=== PATIENT | female | born 1990 | race Caucasian/White ===

== ENCOUNTER 2018-06-29 18:23 | Emergency (ER) | payer OTHER ==
[2018-06-29 18:38] VITALS: BP 116/78; PULSE 60; RESP 16; TEMP 98.1; O2SAT 98
[2018-06-29] MEDS ORDERED: Amoxicillin-Clav 500-125 mg Tab PO STA (19:10)
[2018-06-29] MEDS ORDERED: Amoxicillin-Clav 500-125 mg Tab PO ONE (19:19)
--- NOTE | 2018-06-29 19:41 | C.PDOC ---
History Of Present Illness 27 year old female presents to the ED for evaluation of left ear pain that started today. Patient reports fevers (subjective) and pain to the back of the left ear. She notes prior visit to PMD who prescribed a 5day course of azithromycin but only completed 2 days of the antibiotics. Denies ear discharge, allergies to medications nausea, vomiting, loss of hearing, and any other associated symptoms. <Rika Piña - Last Filed: 06/29/18 19:48> History Per: Patient History/Exam Limitations: None Onset/Duration Of Symptoms: Hrs Current Symptoms Are (Timing): Still Present <Rika Piña - Last Filed: 06/29/18 19:48> <João Morrison - Last Filed: 07/02/18 19:52> Time Seen by Provider: 06/29/18 18:48 Chief Complaint (Nursing): ENT Problem Past Medical History Reviewed: Historical Data, Nursing Documentation, Vital Signs Vital Signs: Last Vital Signs Temp 98.1 F 06/29/18 18:36 Pulse 60 06/29/18 18:36 Resp 16 06/29/18 18:36 BP 116/78 06/29/18 18:36 Pulse Ox 98 06/29/18 18:36 Family History: States: Unknown Family Hx - Social History Hx Alcohol Use: No Hx Substance Use: No <Rika Piña - Last Filed: 06/29/18 19:48> Vital Signs: Last Vital Signs Temp 98.1 F 06/29/18 18:36 Pulse 60 06/29/18 18:36 Resp 16 06/29/18 18:36 BP 116/78 06/29/18 18:36 Pulse Ox 98 06/29/18 19:52 <João Morrison - Last Filed: 07/02/18 19:52> Review Of Systems Except As Marked, All Systems Reviewed And Found Negative. Constitutional: Positive for: Fever (subjective.) ENT: Positive for: Ear Pain (left.). Negative for: Ear Discharge, Other (loss of hearing.) Gastrointestinal: Negative for: Nausea, Vomiting <Rika Piña - Last Filed: 06/29/18 19:48> Physical Exam - Physical Exam Appears: Well, Non-toxic, No Acute Distress Skin: Normal Color, Warm, Dry Head: Atraumatic, Normacephalic Eye(s): bilateral: Normal Inspection Ear(s): Left: Other (erythema. Tenderness to the back of the LT ear.), Right: Normal Nose: Normal, No Discharge Oral Mucosa: Moist Throat: Normal, No Erythema, No Exudate Neck: Normal ROM, Supple Neurological/Psych: Oriented x3, Normal Speech <Rika Piña - Last Filed: 06/29/18 19:48> ED Course And Treatment O2 Sat by Pulse Oximetry: 98 (RA) Pulse Ox Interpretation: Normal <Rika Piña - Last Filed: 06/29/18 19:48> Medical Decision Making Medical Decision Making: Plan: --Augmentin. Progress/Update: --Patient stable for discharge home. Prescribed Motrin and Augmentin. <Rika Piña - Last Filed: 06/29/18 19:48> Disposition - Disposition Disposition Time: 19:42 <Rika Piña - Last Filed: 06/29/18 19:48> <João Morrison - Last Filed: 07/02/18 19:52> - Disposition Referrals: at [facility] [Outside] Disposition: HOME/ ROUTINE Condition: STABLE Additional Instructions: Follow up with the medical doctor within 1-2 days. Return if worsened. Prescriptions: Amoxicillin/Clavulanate [Augmentin 500 MG-125 MG] 1 tab PO BID #13 tab Ibuprofen [Motrin] 1 tab PO TID PRN #30 tab PRN Reason: Pain Instructions: Ear Infections (Otitis Media) (DC) Forms: [employer] ([place]) - Clinical Impression Clinical Impression: Otitis media - PA / [employer] / Resident Statement MD/DO has reviewed & agrees with the documentation as recorded. - Scribe Statement The provider has reviewed the documentation as recorded by the Scribe (Alondra Alonso) All medical record entries made by the Scribe were at my direction and personally dictated by me. I have reviewed the chart and agree that the record accurately reflects my personal performance of the history, physical exam, medical decision making, and the department course for this patient. I have also personally directed, reviewed, and agree with the discharge instructions and disposition. <Rika Piña - Last Filed: 06/29/18 19:48>
== END 2018-06-29 19:49 | disposition home or self-care (01) ==
LOC: C.ER 18:23
DX: H66.92 Otitis media, unspecified, left ear (principal)

== ENCOUNTER 2018-12-06 11:43 | Emergency (ER) | payer OTHER ==
[2018-12-06 13:09] VITALS: TEMP 98.4; O2SAT 100
[2018-12-06 13:24] VITALS: BMI 24.2
[2018-12-06 13:46] LABS: BASO % 0.4 % (0.0-2.0); EOS # 0.2 K/uL (0.0-0.7); EOS % 2.4 % (0.0-4.0); HEMOGLOBIN 11.3 g/dL (11.0-16.0); LYMPH % 23.3 % (20.0-40.0); MEAN CELL VOLUME 82.1 fL (81.0-99.0); MEAN CORPUSCULAR HEMOGLOBIN 27.6 pg (27.0-31.0); MEAN CORPUSCULAR HGB CONC 33.7 g/dL (33.0-37.0); MEAN PLATELET VOLUME 6.4 fL (7.2-11.7); MONO # 0.7 K/uL (0.0-0.8); MONO % 7.7 % (0.0-10.0); NEUT # 5.7 K/uL (1.8-7.0); NEUT % 66.2 % (50.0-75.0); RBC 4.1 Mil/uL (3.80-5.20); WHITE BLOOD COUNT 8.7 K/uL (4.8-10.8)
[2018-12-06 13:47] LABS: SQUAMOUS EPITHIAL 1 /hpf (0-5); URINE BILIRUBIN NEGATIVE (NEGATIVE); URINE BLOOD NEGATIVE (NEGATIVE); URINE CLARITY Clear (Clear); URINE COLOR Yellow (YELLOW); URINE GLUCOSE (UA) NORMAL (Normal); URINE LEUKOCYTE ESTERASE NEG Leu/uL (Negative); URINE PROTEIN NEGATIVE (NEGATIVE); URINE UROBILINOGEN NORMAL mg/dL (0.2-1.0)
[2018-12-06 13:57] LABS: ALB/GLOB RATIO 1.3 (1.0-2.1); ALBUMIN 4.7 g/dL (3.5-5.0); ALT/SGPT 18 U/L (9-52); AST/SGOT 26 U/L (14-36); BLOOD UREA NITROGEN 10 mg/dL (7-17); GFR NON-AFRICAN AMERICAN > 60
--- NOTE | 2018-12-06 14:33 | US ---
Date of service: 12/06/2018 Indication: abd. pain Comparison: None available Technique: Real-time transabdominal pelvic ultrasound was performed. In addition a transvaginal pelvic ultrasound was necessary to better depict pelvic anatomy. Findings: The uterus measures approximately 7.6 x 4.3 x 5.1 cm. Anteverted. Cervix length measures approximately 2.6 cm. The gestational sac measures 0.2 cm, out of range for gestational age calculation. No evidence of yolk sac or pole at this time. The right ovary measures 2.4 x 1.5 x 2.9 cm. The left ovary measures 2.6 x 1.3 x 2.1 cm. Blood flow was demonstrated to both ovaries. Impression: Small presumed gestational sac which is too small for gestational age calculation. Recommend clinical correlation including quantitative beta HCG and follow-up as indicated.
--- NOTE | 2018-12-06 15:02 | C.PDOC ---
History Of Present Illness 27 year old female presents to ED for evaluation of . Patient was in the ED 1 week ago with complaint of abdominal pain and states that it has improved. Patient denies abdominal pain, nausea, vomiting, vaginal bleeding, and vaginal discharge. Time Seen by Provider: 12/06/18 13:14 Chief Complaint (Nursing): Abdominal Pain History Per: Patient History/Exam Limitations: no limitations Current Symptoms Are (Timing): Better Quality Of Discomfort: denies: "Pain" Associated Symptoms: denies: Nausea, Vomiting, Other (vaginal discharge) Exacerbating Factors: None Alleviating Factors: None Abnormal Vaginal Bleeding: No Past Medical History Reviewed: Historical Data, Nursing Documentation, Vital Signs Vital Signs: Last Vital Signs Temp 98.4 F 12/06/18 13:09 Pulse 71 12/06/18 13:09 Resp 18 12/06/18 13:09 BP 116/77 12/06/18 13:09 Pulse Ox 100 12/06/18 13:09 - Medical History PMH: No Chronic Diseases Surgical History: No Surg Hx Family History: States: Unknown Family Hx - Social History Hx Alcohol Use: No Hx Substance Use: No Review Of Systems Except As Marked, All Systems Reviewed And Found Negative. Gastrointestinal: Positive for: Abdominal Pain Physical Exam - Physical Exam Appears: Non-toxic, No Acute Distress Skin: Normal Color, Warm, Dry Head: Atraumatic, Normacephalic Eye(s): bilateral: Normal Inspection, PERRL, EOMI Nose: Normal Oral Mucosa: Moist Chest: Symmetrical Cardiovascular: Rhythm Regular, No Murmur Respiratory: Normal Breath Sounds, No Rales, No Rhonchi, No Wheezing Gastrointestinal/Abdominal: Normal Exam, Soft, No Tenderness Extremity: Bilateral: Atraumatic, Normal Color And Temperature, Normal ROM Neurological/Psych: Oriented x3, Normal Speech ED Course And Treatment - Laboratory Results Result Diagrams: 12/06/18 13:38 12/06/18 13:38 Lab Results: Total Bilirubin 0.6 mg/dL (0.2-1.3) 12/06/18 13:38 AST 26 U/L (14-36) 12/06/18 13:38 ALT 18 U/L (9-52) 12/06/18 13:38 Alkaline Phosphatase 63 U/L (38-126) 12/06/18 13:38 Total Protein 8.4 g/dL (6.3-8.3) H 12/06/18 13:38 Albumin 4.7 g/dL (3.5-5.0) 12/06/18 13:38 Globulin 3.7 gm/dL (2.2-3.9) 12/06/18 13:38 Albumin/Globulin Ratio 1.3 (1.0-2.1) 12/06/18 13:38 Urine Color Yellow (YELLOW) 12/06/18 13:38 Urine Clarity Clear (Clear) 12/06/18 13:38 Urine pH 7.0 (5.0-8.0) 12/06/18 13:38 Ur Specific [place]ctor 1.012 (1.003-1.030) 12/06/18 13:38 Urine Protein Negative mg/dL (NEGATIVE) 12/06/18 13:38 Urine Glucose (UA) Normal mg/dL (Normal) 12/06/18 13:38 Urine Ketones Negative mg/dL (NEGATIVE) 12/06/18 13:38 Urine Blood Negative (NEGATIVE) 12/06/18 13:38 Urine Nitrate Negative (NEGATIVE) 12/06/18 13:38 Urine Bilirubin Negative (NEGATIVE) 12/06/18 13:38 Urine Urobilinogen Normal mg/dL (0.2-1.0) 12/06/18 13:38 Ur Leukocyte Esterase Neg Lee/uL (Negative) 12/06/18 13:38 Urine WBC (Auto) < 1 /hpf (0-5) 12/06/18 13:38 Urine RBC (Auto) 1 /hpf (0-3) 12/06/18 13:38 Ur Squamous Epith Cells 1 /hpf (0-5) 12/06/18 13:38 Beta HCG, Quant 941.85 mIU/ML 12/06/18 13:38 O2 Sat by Pulse Oximetry: 100 (in RA) - CT Scan/US OB/Transvaginal US Other Rad Studies (CT/US): Interpreted By Me, Read By Radiologist CT/US Interpretation: Impression: Small presumed gestational sac which is too small for gestational age calculation. Recommend clinical correlation including quantitative beta HCG and follow-up as indicated. Medical Decision Making Medical Decision Making: Assessment: review of questionable Plan: Labs ordered with CMP, CBC, and UA OB/ Transvaginal US ordered for patient Patient discharged and [facility]. Patient advised to return to ED if symptoms persist or worsen. Disposition - Disposition Referrals: [facility] [Outside] [facility] [Outside] Disposition: HOME/ ROUTINE Disposition Time: 15:00 Condition: STABLE Additional Instructions: follow up with ob physician in 2 days call to make an appointment return to ER if symptoms worsens or progress Instructions: Threatened Miscarriage Forms: [facility] (K[place]akh), General Discharge Instructions - Clinical Impression Clinical Impression: - Scribe Statement The provider has reviewed the documentation as recorded by the Scribe (Tejal Read) All medical record entries made by the Scribe were at my direction and personally dictated by me. I have reviewed the chart and agree that the record accurately reflects my personal performance of the history, physical exam, medical decision making, and the department course for this patient. I have also personally directed, reviewed, and agree with the discharge instructions and disposition.
[2018-12-06 15:14] VITALS: BP 103/66; PULSE 66; RESP 16
== END 2018-12-06 15:24 | disposition home or self-care (01) ==
LOC: C.ER 11:43
DX: O26.899 Other specified pregnancy related conditions, unspecified trimester (principal); Z3A.00 Weeks of gestation of pregnancy not specified; R10.9 Unspecified abdominal pain